=== PATIENT | female | born 1980 | race Caucasian/White ===

== ENCOUNTER 2017-02-16 21:02 | Emergency (ER) | payer SELFPAY ==
[~2017-02-16] VITALS: Ht 172.7 cm; Wt 65.0 kg
[~2017-02-16 21:02] MED LIST: IRON325T2 PO; JUNETAB2 PO; METF500 PO; PREN0.01 PO
[2017-02-16 21:06] VITALS: BP 148/85; PULSE 79; RESP 16; TEMP 98; O2SAT 100
--- NOTE | 2017-02-16 21:34 | PD ---
Physical Exam Time Seen by Provider: 21:30 Narrative 36yo F c/o nausea, dizziness x3 days. Was seen at [facility] yesterday and told she wasn't or dehydrated. Onset of Chest tightness and SOB about 40 minutes ago and currently. LMP unknown. Hx PCOS. Denies upper respiratory symptoms or fever. Patient stable. Patient seen in triage. Patient awaiting bed placement. Data Data Last Documented VS Vital Signs Date Time Temp Pulse Resp B/P Pulse Ox O2 Delivery O2 Flow Rate FiO2 02/16/17 21:06 98.0 79 16 148/85 100 Room Air MDM Supervised Visit with MAUREEN: Corinna Bernabe Feb 16, 2017 21:34
== END 2017-02-16 21:53 | disposition left against medical advice (07) ==
LOC: NED 21:02
DX: R11.0 Nausea (principal); R42 Dizziness and giddiness; R06.02 Shortness of breath
CPT/HCPCS: 99281; 99284